=== PATIENT | female | born 1995 | race Caucasian/White ===

== ENCOUNTER 2017-11-22 16:17 | Emergency (ER) | payer MEDICAID, OTHER ==
[~2017-11-22] VITALS: Ht 160 cm; Wt 59.0 kg
[2017-11-22 17:54] LABS: BASOPHILS % 0.6 % (0.0-2.0); EOSINOPHILS % 2.4 % (0.0-5.0); HEMATOCRIT. 39.5 % (36.0-48.0); HEMOGLOBIN. 13.4 g/dL (12.0-16.0); MEAN CORPUSCULAR HEMOGLOBIN 29.8 pg (28.0-32.0); MEAN CORPUSCULAR VOLUME 88.3 fL (81.0-99.0); MEAN PLATELET VOLUME 8.1 fl (7.4-10.4); MONOCYTES % 6.7 % (2.0-8.0); NEUTROPHILS % 65.3 % (40.0-76.0); PLATELET 286 x1000/uL (130-400); RED BLOOD CELL COUNT 4.47 mill/uL (4.2-5.4); RED CELL DISTRIBUTION WIDTH 12.5 % (11.6-14.6)
[2017-11-22 17:57] LABS: CHLORIDE 103 mEq/L (98-107)
[2017-11-22 17:59] LABS: INR 1.2; PARTIAL THROMBOPLASTIN TIME 29.4 sec (23.4-31.0)
[2017-11-22 18:06] LABS: HCG SCREEN NEGATIVE
[2017-11-22 19:47] VITALS: BP 134/69
== END 2017-11-22 20:40 | disposition home or self-care (01) ==
LOC: ER 16:36
DX: R07.89 Other chest pain (principal); F41.9 Anxiety disorder, unspecified; M79.602 Pain in left arm
CPT/HCPCS: 36415; 71045; 80053; 83690; 84484; 84703; 85025; 85610; 85730; 93005; 99285; Z7610

== ENCOUNTER 2020-09-07 17:44 | Observation (INO) | payer MEDICAID ==
[~2020-09-07] VITALS: Ht 160 cm; Wt 85.7 kg
[2020-09-07] MEDS ORDERED: PNV1TABL76 PO (18:02)
== END 2020-09-07 20:40 | disposition home or self-care (01) ==
LOC: 8 EST LDRP 17:44
PROVIDERS: ADMIT Obstetrics & Gynecology; ATTEND Obstetrics & Gynecology
DX: O26.893 Other specified pregnancy related conditions, third trimester (principal); R07.9 Chest pain, unspecified; Z3A.39 39 weeks gestation of pregnancy; V43.32XA Unspecified car occupant injured in collision with other type car in nontraffic accident, initial encounter; Y93.89 Activity, other specified; Y92.488 Other paved roadways as the place of occurrence of the external cause
CPT/HCPCS: 59025; 76805; G0378

== ENCOUNTER 2020-09-07 20:58 | Emergency (ER) | payer MEDICAID ==
[~2020-09-07] VITALS: Ht 160 cm; Wt 84.0 kg
[~2020-09-07 20:58] MED LIST: PNV1TABL76 PO
[2020-09-07 23:07] VITALS: BP 127/77
== END 2020-09-07 23:10 | disposition home or self-care (01) ==
LOC: ER 20:58
DX: O26.893 Other specified pregnancy related conditions, third trimester (principal); Z3A.39 39 weeks gestation of pregnancy
CPT/HCPCS: 99281